=== PATIENT | male | born 2000 | race Caucasian/White ===

== ENCOUNTER 2022-02-15 07:37 | Outpatient (CLI) | payer OTHER ==
[2022-02-15 08:11] VITALS: BP 120/70; TEMP 97.7
[2022-02-15] MEDS ORDERED: Lidocaine 1% PF 5 ML VIAL ONE (08:27)
[2022-02-15] MEDS ORDERED: EPINEPHrine 1 MG/ML AMP ONE (08:27)
[2022-02-15] MEDS ORDERED: Sodium Bicarbonate 2.5 MEQ/5 ML VIAL ONE (08:27)
== END 2022-02-15 07:38 | disposition home or self-care (01) ==
LOC: CSHRAD 07:37
PROVIDERS: ATTEND Orthopaedic Surgery
DX: M24.811 Other specific joint derangements of right shoulder, not elsewhere classified (principal); S43.491A Other sprain of right shoulder joint, initial encounter; M24.111 Other articular cartilage disorders, right shoulder
CPT/HCPCS: 23350; J0171

== ENCOUNTER 2023-06-29 10:31 | Emergency (ER) | payer OTHER ==
[2023-06-29 12:28] LABS: Bilirubin Neg (Negative); Blood, Urine Negative (Negative); Clarity Clear (Clear); Glucose, Urine (Dipstick) Normal (Negative); Ketone, Urine Negative (Negative); Leukocyte Negative (Negative); Nitrite Negative (Negative); Protein, Urine (Dipstick) Negative (Neg-Trace); Urobilinogen Normal mg/dL (Less than 2)
[2023-06-29 12:31] LABS: CAUTI Indications for Culture Pelvic or flank pain; RBC/HPF None Seen HPF (0-3); Squamous Epithelial 0-3 HPF (0-3); WBC/HPF 0-3 HPF (0-3)
[2023-06-29 12:32] LABS: Bacteria/HPF Rare-Few HPF (None Seen); Urine Culture Reflex No No
[2023-06-30 10:01] LABS: Chlam.trachomatis by PCR,Urine DETECTED (NotDetected); GC N.gonorrhoeae PCR,UrineVOID Not Detected (NotDetected)
== END 2023-06-29 14:00 | disposition home or self-care (01) ==
LOC: CSHERS 10:31
DX: N50.89 Other specified disorders of the male genital organs (principal)
CPT/HCPCS: 76870; 81001; 87491; 87591; 93976